=== PATIENT | male | born 1970 | race Caucasian/White ===

== ENCOUNTER 2016-05-22 06:08 | Emergency (ER) | payer SELFPAY ==
[2016-05-22 06:22] VITALS: BP 132/92
[2016-05-22] MEDS ORDERED: KETOROLAC TROMETHAMINE 60 MG/2 ML SDV IM ONE (07:23)
--- NOTE | 2016-05-22 07:28 | ER Document Report ---
HPI - HPI Patient complains to provider of: left shoulder pain Onset: Other Quality of pain: Achy Severity: Severe Pain Level: 4 Context: Patient presents to the emergency department with complaints of left shoulder pain. Patient reports he has a history of shoulder pain. He works as a senior commercial loan officer. He is right handed. He denies trauma or lifting something heavy. He reports the shoulder has been hurting for the last couple days. Patient complains of pain with movement complain of pain movement, when lifting arm above his head. Associated Symptoms: None Exacerbated by: Movement Relieved by: Denies Similar symptoms previously: Yes Recently seen / treated by doctor: No - DERM Skin Color: Normal, [place] Past Medical History - General Information source: Patient - Social History Smoking Status: Current Every Day Smoker Chew tobacco use (# tins/day): No Frequency of alcohol use: None Drug Abuse: None Occupation: fisherman Family History: None Patient has suicidal ideation: No Patient has homicidal ideation: No Renal/ Medical History: Denies: Hx Peritoneal Dialysis Traumatic Medical History: Reports: Hx Fractures - nose, finger Past Surgical History: Reports: Hx Appendectomy, Hx Orthopedic Surgery - Immunizations Immunizations up to date: Yes Hx Diphtheria, Pertussis, Tetanus Vaccination: Yes Vertical Provider Document - CONSTITUTIONAL Agree With Documented VS: Yes Exam Limitations: No Limitations General Appearance: WD/WN, Mild Distress - wnces with passive movement lifting above his shoulder, - INFECTION CONTROL TRAVEL OUTSIDE OF THE [place] IN LAST 30 DAYS: No - HEENT HEENT: Atraumatic, Normocephalic - NECK Neck: Normal Inspection, Supple. negative: Lymphadenopathy-Left, Lymphadenopathy-Right - RESPIRATORY Respiratory: Breath Sounds Normal, No Respiratory Distress O2 Sat by Pulse Oximetry: 97 - CARDIOVASCULAR Cardiovascular: Regular Rate - MUSCULOSKELETAL/EXTREMETIES Musculoskeletal/Extremeties: Tender - left shoulder ttp, good radial pulse, good cap refill, complaints of pain with supination and pronation. Positive arc test. - NEURO Level of Consciousness: Awake, Alert, Appropriate Motor/Sensory: No Motor Deficit - DERM Integumentary: Warm, Dry Adult Front & Back Diagram: 1 - c/o pain, ttp Course - Re-evaluation Re-evalutation: 05/22/16 Patient given information on impingement syndrome. Patient was also instructed on Motrin importance of follow-up with orthopedics for continued pain. He verbalized understanding. He was given information on orthopedics. - Vital Signs Vital signs: Temp Pulse Resp BP Pulse Ox 97.7 F 67 14 132/92 H 97 05/22/16 06:17 05/22/16 06:17 05/22/16 06:17 05/22/16 06:17 05/22/16 06:17 - Diagnostic Test Radiology reviewed: Image reviewed, Reports reviewed Discharge - Discharge Clinical Impression: Impingement syndrome of left shoulder, elevated blood pressure Left shoulder pain Qualifiers: Chronicity: acute Qualified Code(s): M25.512 - Pain in left shoulder Condition: Stable Disposition: HOME, SELF-CARE Instructions: Toradol Injection ([facility]), Ibuprofen (General) ([facility]), Ice Packs ( [facility]) Additional Instructions: *You have been evaluated for shoulder pain *Monitor your blood pressure. Your blood pressure was elevated today. This may be because you were anxious, in pain or because you need medication. It is important to follow up with your primary care provider for full evaluation. *Rest/Ice packs *Follow up with orthopedics-call for an appointment- within the next week *Take medication as prescribed *Return to ED for worsening condition, changes, needs Prescriptions: Ibuprofen [Motrin 800 mg Tablet] 800 mg PO TID #30 tablet Forms: Elevated Blood Pressure, Smoking Cessation Education
== END 2016-05-22 07:56 | disposition home or self-care (01) ==
LOC: ER 06:08
DX: M75.42 Impingement syndrome of left shoulder (principal); R03.0 Elevated blood-pressure reading, without diagnosis of hypertension; M25.512 Pain in left shoulder; F17.210 Nicotine dependence, cigarettes, uncomplicated
CPT/HCPCS: 99283; 96372; J1885